=== PATIENT | female | born 1970 | race Caucasian/White ===

== ENCOUNTER 2021-06-30 16:09 | Emergency (ER) | payer OTHER, MEDICAID ==
[~2021-06-30] VITALS: Ht 154.9 cm; Wt 77.3 kg
[~2021-06-30 16:09] MED LIST: ACET325T9 PO; ALBU2.5V5 NEB; ALPR0.257 PO; AMLO-186 PO; ARIP2TAB3 PO; BENZ2AMP4 IJ; BENZ2AMP4 PO; CARV12.511 PO; CLON-77 PO; DICL100G54 TP; ESZO2TAB21 PO; FAMO-63 PO; FERR325T14 PO; HYDR-2868 PO; HYDR25TA PO; LANS30CA66 PO; LISI10TA16 PO; LISI20TA18 PO; MELA3TAB43 PO; MIRT-7 PO; NAFC2VIA IJ; NICO1PAT21 TP; OXYC5CAP PO; POTA20TA4 PO; QUET25TA3 PO; VENL150C PO; VENL150T PO
--- NOTE | 2021-06-30 16:49 | PHYS DOC ---
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 She denies chest pain. She denies hemoptysis. She reports white and yellow sputum production. She reports that she is actually had a cough off and on for about 3 months. She reports that she was treated for pneumonia 3 months ago. She has not received influenza nor Covid vaccinations. She has COPD, and she continues to smoke tobacco. She denies any known sick contacts. She denies travel history. She denies lower extremity swelling. She denies recent hospitalizations within the last 90 days. She has not had any intermediate facility exposure in the last 90 days. (JENIFFERCABRERAReid Morris ) Review of Systems: Review of Systems: Constitutional: Denies fever or chills. [] Eyes: Denies change in visual acuity. [] HENT: She does report some nasal congestion. Denies sore throat. Respiratory: Reports cough with white and yellow sputum. Ports dyspnea and wheezing. Cardiovascular: Denies chest pain or edema. [] GI: Denies abdominal pain, nausea, vomiting Musculoskeletal: She reports diffuse and chronic myalgias and chronic joint pain, unchanged from baseline. Integument: Denies rash. [] Neurologic: Denies headache, focal weakness or sensory changes. [] Psychiatric: Chronic anxiety, unchanged. [] (JENIFFERCHACHA Morris DO) Heart Score: C/O Chest Pain: No Risk Factors: Risk Factors: DM, Current or recent (<one month) smoker, HTN, HLP, family history of CAD, obesity. Risk Scores: Score 0 - 3: 2.5% MACE over next 6 weeks - Discharge Home Score 4 - 6: 20.3% MACE over next 6 weeks - Admit for Clinical Observation Score 7 - 10: 72.7% MACE over next 6 weeks - Early Invasive Strategies (JENIFFERCHACHA M ) C/O Chest Pain: N/A HEART Score for Chest Pain: HEART Score for Chest Pain Response (Comments) Value History Slighlty/Non-Suspicious 0 ECG Nonspecific Repolarizatio 1 Age >45 - < 65 1 Risk Factors >3 Risk Factors or Hx CAD 2 Troponin < Normal Limit 0 Total 4 (ALBERTO MUIR MD) Allergies: Allergies: Allergies Coded Allergies Type Severity Reaction Last Updated Verified No Known Drug Allergies 11/13/13 No (CHACHA SWIFT DO) Physical Exam: PE: Constitutional: Well developed, well nourished, no acute distress, non-toxic appearance. She appears older than stated age. HENT: Normocephalic, atraumatic, oropharynx is patent and clear. Mucous m embranes are moist. Eyes: Sclera clear, anicteric Neck: Normal range of motion, no tenderness, supple, no stridor. Trachea is midline Cardiovascular:Heart rate regular rhythm, +2 radial and posterior tibial pulses bilaterally. Warm and well-perfused appearing. Lungs & Thorax: Inspiratory and expiratory wheezes noted bilaterally. Equal chest rise. Mild to moderate tachypnea. No stridor. Speaks in full and clear sentences. Bilateral diffuse rhonchi. Abdomen: Abdomen is soft, nondistended, nontender to palpation. Skin: Warm, dry, no erythema, no rash. [] Back: No tenderness, no CVA tenderness. [] Extremities: No tenderness, no cyanosis, no clubbing, ROM intact, no edema. No calf tenderness. Neurologic: Alert and oriented X 3, normal motor function, normal sensory function, no focal deficits noted. [] Psychologic: Anxious, cooperative. [] (CHACHA SWIFT DO) EKG: EKG: EKG is interpreted at 1628 Rhythm is sinus Rate is 90 bpm Reagan is normal No STEMI (CHACHA SWIFT DO) Radiology/Procedures: Radiology/Procedures: [] (CHACHA SWIFT DO) Radiology/Procedures: [facility] [address] [place] [address] IMAGING REPORT Signed PATIENT: YECENIA VELASCO ACCOUNT: [id number] : 1970 LOCATION: ER AGE: 51 SEX: F EXAM STATUS: REG ER ORD. PHYSICIAN: CHACHA SWIFT DO REASON: cough, dyspnea PROCEDURE: PORTABLE CHEST 1V EXAMINATION: Chest radiograph. VIEWS: Single AP view of the chest COMPARISON: 01/10/2019 INDICATION:51 years, Female, cough, dyspnea. FINDINGS: Normal cardiomediastinal silhouette. Bilateral perihilar and bibasilar opacities, predominantly peripheral. No pleural effusion or pneumothorax. No acute osseous process. IMPRESSION: Bilateral perihilar and basilar predominantly peripheral opacities, suspicious for diffuse infiltrates and/or pulmonary edema. Electronically signed by: Ace Swift DO (06/30/2021 6:41 PM) [facility] DICTATED and SIGNED BY: ACE SWIFT DO DATE: 06/30/21 [id number] (ALBERTO MUIR MD) Course & Med Decision Making: Course & Med Decision Making I have ordered a saline lock/IV. She is stable on the color television console monitor. She is not requiring supplemental oxygen at this time. I have ordered IV Solu-Medrol and a DuoNeb treatment. Chest x-ray and laboratory evaluation is also ordered. Labs and imaging are pending. Lung exam is improved after Duoneb. She is complaining about chronic flank and back pain. IV Fentanyl is ordered for pain. Care is transferred to Dr. Muir at 1800. (CHACHA SWIFT DO) Course & Med Decision Making Patient feeling better after the DuoNeb. States she is feeling well enough to go home. Give first dose of antibiotics here. Discussed PUI precautions for pending Covid PCR test (ALBERTO MUIR MD) Dragon Disclaimer: Dragon Disclaimer: This electronic medical record was generated, in whole or in part, using a voice recognition dictation system. (CHACHA SWIFT DO) Departure Departure Impression: Primary Impression: COPD (chronic obstructive pulmonary disease) Additional Impressions: Bronchospasm Dyspnea Disposition: 01 HOME / SELF CARE / HOMELESS Condition: STABLE Referrals: UNKNOWN PCP NAME (PCP) Additional Instructions: Follow-up with your primary care provider regarding possible prescription for a nebulizer to use at home. Scripts Acetaminophen With Codeine (ACETAMINOPHEN-COD #3 TABLET) 1 Each Tablet 1 TAB PO PRN Q4HRS PRN for PAIN for 3 Days, #12 TAB Prov: ALBERTO MUIR MD 06/30/21 Prednisone (PREDNISONE) 50 Mg Tablet 1 TAB PO DAILY for steroid for 4 Days, #4 TAB Prov: ALBERTO MUIR MD 06/30/21 Levofloxacin (LEVOFLOXACIN) 750 Mg Tablet 1 TAB PO DAILY for antibiotic for 4 Days, #4 TAB Prov: ALBERTO MUIR MD 06/30/21 CHACHA SWIFT DO Jun 30, 2021 16:49 ALBERTO MUIR MD Jun 30, 2021 19:43
[2021-06-30] MEDS ORDERED: methylPREDNISolone SOD SUCC PF 125 MG/2 ML VIAL. IV ONE (17:00)
[2021-06-30] MEDS ORDERED: IPRATRPIUM/ALBUTEROL 0.5/2.5MG 3 ML NEBU. NEB ONE (17:00)
--- NOTE | 2021-06-30 17:39 | EKG ---
[facility] [address] [place] [address] Test Date: 2021-06-30 Test Time: 16:26:29 Pat Name: YECENIA VELASCO Department: Room: Gender: F Licensed Tax Consultant: : 1970 Requested By: CHACHA SWIFT Order Number: [id number] Reading MD: Jamarcus Vidal Measurements Intervals Sandy Rate: 90 P: 0 IN: 118 QRS: 39 QRSD: 86 T: 66 QT: 328 QTc: 405 Interpretive Statements SINUS RHYTHM POSSIBLE LEFT ATRIAL ABNORMALITY Electronically Signed On 07-05-2021 9:36:07 [employer] ACCOUNT EXECUTIVE by Jamarcus Vidal
[2021-06-30 18:17] LABS: BASO % 1 % (0-3); EOS # 0.1 x10^3/uL (0.0-0.7); EOS % 2 % (0-3); HEMATOCRIT 32.7 % (36.0-47.0); HEMOGLOBIN 10.5 g/dL (12.0-15.5); LYMPH # 1.5 x10^3/uL (1.0-4.8); LYMPH % 23 % (24-48); MEAN CORPUSCULAR HEMOGLOBIN 24 pg (25-35); MEAN CORPUSCULAR HGB CONC 32 g/dL (31-37); MEAN CORPUSCULAR VOLUME 74 fL (79-100); MONO # 0.5 x10^3/uL (0.0-1.1); MONO % 8 % (0-9); NEUT # 4.4 x10^3/uL (1.8-7.7); NEUT % 67 % (31-73); PLATELET COUNT 180 x10^3/uL (140-400); RED BLOOD COUNT 4.42 x10^6/uL (3.50-5.40); RED CELL DISTRIBUTION WIDTH 15.3 % (11.5-14.5); WHITE BLOOD COUNT 6.5 x10^3/uL (4.0-11.0)
[2021-06-30 18:29] LABS: CALCIUM 8.6 mg/dL (8.5-10.1); CREATININE 1.3 mg/dL (0.6-1.0); GFR 43.4; POTASSIUM 3.6 mmol/L (3.5-5.1)
[2021-06-30 18:30] VITALS: BP 117/70
[2021-06-30 18:36] LABS: ALBUMIN 2.9 g/dL (3.4-5.0); ALBUMIN/GLOBULIN RATIO 0.6 (1.0-1.7); MAGNESIUM 1.5 mg/dL (1.8-2.4); TOTAL BILIRUBIN 0.6 mg/dL (0.2-1.0); TOTAL PROTEIN 7.4 g/dL (6.4-8.2)
--- NOTE | 2021-06-30 18:44 | RAD ---
EXAMINATION: Chest radiograph. VIEWS: Single AP view of the chest COMPARISON: 01/10/2019 INDICATION:51 years, Female, cough, dyspnea. FINDINGS: Normal cardiomediastinal silhouette. Bilateral perihilar and bibasilar opacities, predominantly perip heral. No pleural effusion or pneumothorax. No acute osseous process. IMPRESSION: Bilateral perihilar and basilar predominantly peripheral opacities, suspicious for diffuse infiltrate s and/or pulmonary edema. Electronically signed by: Ramiro Swift DO (06/30/2021 6:41 PM) [facility]
[2021-06-30] MEDS ORDERED: fentaNYL PF VIAL 100 MCG/2 ML VIAL IVP ONE (18:45)
[2021-06-30 18:52] LABS: INFLUENZA A PATIENT NEGATIVE (NEGATIVE); INFLUENZA B PATIENT NEGATIVE (NEGATIVE)
[2021-06-30 19:11] LABS: PLT ESTIMATE ADEQUATE (ADEQUATE)
[2021-06-30 19:12] LABS: HYPOCHROMIA SLIGHT; MICROCYTOSIS SLIGHT
[2021-06-30 19:30] LABS: BILIRUBIN,URINE NEGATIVE (NEG); CLARITY,URINE CLEAR; COLOR,URINE YELLOW; NITRITE,URINE NEGATIVE (NEG); PH,URINE 6.5 (<5.0-8.0); PROTEIN,URINE 30 mg/dL (NEG-TRACE); UROBILINOGEN,URINE >=8.0 mg/dL (0.2 mg/dL)
[2021-06-30] MEDS ORDERED: PRED50TA PO (19:40)
[2021-06-30] MEDS ORDERED: LEVO750T5 PO (19:40)
[2021-06-30] MEDS ORDERED: ACET1TAB33 PO ×2 (19:40→19:43)
[2021-06-30] MEDS ORDERED: HYDROcodone/APAP 7.5/325MG 1 TAB TABLET PO ONE (19:45)
[2021-06-30 19:51] LABS: BACTERIA,URINE 0 /HPF (0-FEW)
--- NOTE | 2021-07-01 17:12 | NUR ---
IP: Informed pt of positive covid test and the need to quarantine for 10 days. Pt verbalized understanding.
== END 2021-06-30 20:15 | disposition home or self-care (01) ==
LOC: ER 16:09
DX: J44.9 Chronic obstructive pulmonary disease, unspecified (principal); Z20.822 Contact with and (suspected) exposure to COVID-19; J98.01 Acute bronchospasm; R06.02 Shortness of breath; K21.9 Gastro-esophageal reflux disease without esophagitis; I10 Essential (primary) hypertension; F17.200 Nicotine dependence, unspecified, uncomplicated; Z86.73 Personal history of transient ischemic attack (TIA), and cerebral infarction without residual deficits
CPT/HCPCS: 36415; 71045; 80053; 81001; 83605; 83735; 83880; 84484; 85025; 87040; 87426; 87804; 93005; 94640; 96374; 96375; 99285; J2930; J3010; U0003; U0005

== ENCOUNTER 2021-07-09 02:40 | Emergency (ER) | payer OTHER, MEDICAID ==
[~2021-07-09] VITALS: Ht 157.5 cm; Wt 77.0 kg
[~2021-07-09 02:40] MED LIST changes: +ACET1TAB33 PO; +LEVO750T5 PO; +PRED50TA PO
--- NOTE | 2021-07-09 03:10 | PHYS DOC ---
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 This chief complaint is actually different from triage complaint. Patient states over the last several days she has pain in her right knee. Patient states she feels a bandlike sensation around her right knee. Patient pain is exacerbated with movement and relieved with rest. Patient denies any injury. Of note patient was recently diagnosed with COVID-19. She is also requesting to be reswabbed against Covid. Patient states her daughter is currently in labor and she would like to see her daughter but requires a negative Covid test. On exam patient is alert and oriented x4. She is in no respiratory distress oxygen saturation is 100% on room air. There is some mild swelling around the right knee she has pain with range of motion. Right lower extremity is neurovascularly intact. Review of Systems: Review of Systems: Constitutional: Denies fever or chills. [] Eyes: Denies change in visual acuity. [] HENT: Denies nasal congestion or sore throat. [] Respiratory: Denies cough or shortness of breath. [] Cardiovascular: Denies chest pain or edema. [] GI: Denies abdominal pain, nausea, vomiting, bloody stools or diarrhea. [] : Denies dysuria. [] Musculoskeletal: Denies back pain or joint pain. [POSITIVE KNEE PAIN] Integument: Denies rash. [] Neurologic: Denies headache, focal weakness or sensory changes. [] Endocrine: Denies polyuria or polydipsia. [] Lymphatic: Denies swollen glands. [] Psychiatric: Denies depression or anxiety. [] Heart Score: C/O Chest Pain: N/A Risk Factors: Risk Factors: DM, Current or recent (<one month) smoker, HTN, HLP, family history of CAD, obesity. Risk Scores: Score 0 - 3: 2.5% MACE over next 6 weeks - Discharge Home Score 4 - 6: 20.3% MACE over next 6 weeks - Admit for Clinical Observation Score 7 - 10: 72.7% MACE over next 6 weeks - Early Invasive Strategies Allergies: Allergies: Allergies Coded Allergies Type Severity Reaction Last Updated Verified No Known Drug Allergies 11/13/13 No Physical Exam: PE: Constitutional: Well developed, well nourished, no acute distress, non-toxic appearance. [] HENT: Normocephalic, atraumatic, bilateral external ears normal, oropharynx moist, no oral exudates, nose normal. [] Eyes: PERRLA, EOMI, conjunctiva normal, no discharge. [] Neck: Normal range of motion, no tenderness, supple, no stridor. [] Cardiovascular:Heart rate regular rhythm, no murmur [] Lungs & Thorax: Bilateral breath sounds clear to auscultation [] Abdomen: Bowel sounds normal, soft, no tenderness, no masses, no pulsatile masses. [] Skin: Warm, dry, no erythema, no rash. [] Back: No tenderness, no CVA tenderness. [] Extremities: No tenderness, no cyanosis, no clubbing, ROM intact, no edema. [pain right knee Full ROM with pain swelling/effusion knee] Neurologic: Alert and oriented X 3, normal motor function, normal sensory function, no focal deficits noted. [] Psychologic: Affect normal, judgement normal, mood normal. [] Current Patient Data: Vital Signs: Vital Signs Date Time Temp Pulse Resp B/P (MAP) Pulse Ox O2 Delivery O2 Flow Rate FiO2 07/09/21 03:05 98.0 80 18 159/83 (108) 98 Room Air 98.0 EKG: EKG: [] Radiology/Procedures: Radiology/Procedures: [] Course & Med Decision Making: Course & Med Decision Making Pertinent Labs and Imaging studies reviewed. (See chart for details) [] Based upon hp/pe did not feel patient had a dvt. Denies cp or sob--- not tachycardic. Treated patients pain in ER. Rapid covid negative-- pcr pending. Rx pain medications patient was discharged home. Jeff Disclaimer: Jeff Disclaimer: This electronic medical record was generated, in whole or in part, using a voice recognition dictation system. Departure Departure Impression: Primary Impression: Knee pain Disposition: HOME / SELF CARE / HOMELESS Condition: STABLE Referrals: IBIS SCHMITT MD (PCP) Patient Instructions: Knee Pain Scripts Hydrocodone/Acetaminophen (Hydrocodone-Acetamin 5-325 mg) 1 Each Tablet 1 EACH PO Q6-8HRS, #14 TAB Prov: NAWAF YOUNGER DO 07/09/21 NAWAF YOUNGER DO Jul 09, 2021 03:10
[2021-07-09] MEDS ORDERED: KETOROLAC 60 MG/2 ML VIAL. IM ONE (03:15)
[2021-07-09] MEDS ORDERED: HYDR-2759 PO (03:55)
[2021-07-09 04:00] VITALS: BP 101/64
--- NOTE | 2021-07-10 16:37 | NUR ---
IP: Informed pt of negative covid test. Pt verbalized understanding.
== END 2021-07-09 04:20 | disposition home or self-care (01) ==
LOC: ER 02:40
DX: M25.561 Pain in right knee (principal); R22.41 Localized swelling, mass and lump, right lower limb; F41.9 Anxiety disorder, unspecified; F32.9 Major depressive disorder, single episode, unspecified; K21.9 Gastro-esophageal reflux disease without esophagitis; I10 Essential (primary) hypertension; F17.200 Nicotine dependence, unspecified, uncomplicated; Z20.822 Contact with and (suspected) exposure to COVID-19
CPT/HCPCS: 87426; 96372; 99283; J1885; U0003; U0005